=== PATIENT | female | born 1985 | race African-American/Black ===

== ENCOUNTER 2017-01-10 20:17 | Emergency (ER) | payer BC ==
[~2017-01-10] VITALS: Ht 170.2 cm; Wt 65.5 kg
[2017-01-10 20:21] VITALS: Ht 170.2 cm; Wt 65.5 kg
[2017-01-10] MEDS ORDERED: HYDR-906 PO (22:05)
[2017-01-10] MEDS: HYDROCODONE/APAP (5/325) TAB PO ONE ×2 (22:09→22:19)
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
[2017-01-10] MEDS ORDERED: SILVER SULFADIAZINE 1% 25 GM CR TOP ONE (22:30)
== END 2017-01-10 22:30 | disposition home or self-care (01) ==
LOC: FTE 20:17
DX: T55.1X1A Toxic effect of detergents, accidental (unintentional), initial encounter (principal); T24.511A Corrosion of first degree of right thigh, initial encounter; X58.XXXA Exposure to other specified factors, initial encounter; Y92.9 Unspecified place or not applicable
CPT/HCPCS: 16000; 99283; Z7610

== ENCOUNTER 2017-07-11 15:04 | Emergency (ER) | END 2017-07-11 19:06 | disposition home or self-care (01) ==

== ENCOUNTER 2017-12-13 12:02 | Emergency (ER) | END 2017-12-13 13:24 | disposition home or self-care (01) ==

== ENCOUNTER 2018-12-11 22:45 | Emergency (ER) | payer BC ==
[~2018-12-11] VITALS: Ht 170.2 cm; Wt 71.5 kg
[~2018-12-11 22:45] MED LIST: ACET500C5 PO; AMOX500C2 PO; BENZ-6 PO; CETI10CA PO; IBUP-1542 PO; ONDA4TAB8 PO; OSEL75CA23 PO; PRED20TA PO; TRIA15CR55 TOP
[2018-12-11 22:47] VITALS: Ht 170.2 cm; Wt 71.5 kg
[2018-12-12] MEDS ORDERED: ONDANSETRON 4 MG INJ IM STA (00:12)
[2018-12-12] MEDS ORDERED: ACETAMINOPHEN 500 MG TAB PO STA (00:12)
--- NOTE | 2018-12-12 00:15 | ERD ---
ER Documentation Chief Complaint Chief Complaint BROWN x3 hours w/ nausea/vomiting. no blurry vision HPI Patient is a 32 years old female with no known PMHx presenting to the clinic for headache, nausea, and emesis since 8 hours ago. Patient reports feeling sick while at work and admits to one NBNB emesis at 7:30PM. Patient reports taking Advil at work with improvement of headache. Patient rates her headache 4/10 and is located on her scalp. Patient denies all other ROS. ROS All systems reviewed and are negative except as per history of present illness. Medications Home Meds Active Scripts Acetaminophen* (Tylophen*) 500 Mg Capsule, 1 CAP PO Q6H PRN for PAIN AND OR ELEVATED TEMP, #20 CAP Prov:HUEY MURPHY PA-C 12/12/18 Ondansetron Hcl* (Zofran*) 4 Mg Tablet, 4 MG PO Q8H PRN for NAUSEA AND/OR VOMITING, #30 TAB Prov:HUEY MURPHY PA-C 12/12/18 Amoxicillin/Potassium Clav (Amox-Clav 500-125 mg Tablet) 500-125 mg Tab, 1 TAB PO Q8 for 7 Days, #21 TAB Prov:HUEY MURPHY PA-C 12/12/18 Prednisone* (Prednisone*) 20 Mg Tab, 40 MG PO DAILY for 5 Days, TAB Prov:SERGIO CHAPMAN MD 12/13/17 Cetirizine Hcl* (Zyrtec*) 10 Mg Capsule, 10 MG PO DAILY, #30 TAB.CHEW Prov:SERGIO CHAPMAN MD 12/13/17 Triamcinolone Acetonide (Triamcinolone Acetonide) 0.1% - 15 Gm Cream.gm., 1 APPLIC TOP BID, #1 TUB 30 g okay. Prov:SERGIO CHAPMAN MD 12/13/17 Benzonatate* (Tessalon Perle*) 100 Mg Capsule, 100 MG PO Q8H PRN for COUGH, #20 CAP Prov:TEMI SAMPSON 07/11/17 Ondansetron Hcl* (Zofran*) 4 Mg Tablet, 4 MG PO Q8H PRN for NAUSEA AND/OR VOMITING, #30 TAB Prov:TEMI SAMPSON 07/11/17 Acetaminophen* (Tylophen*) 500 Mg Capsule, 1 CAP PO Q6H PRN for PAIN AND OR ELEVATED TEMP, #20 CAP Prov:TEMI SAMPSON 07/11/17 Ibuprofen* (Motrin*) 600 Mg Tab, 600 MG PO Q8 PRN for fever/pain, #30 TAB Prov:TEMI SAMPSON 07/11/17 Amoxicillin* (Amoxicillin*) 500 Mg Cap, 500 MG PO TID for 7 Days, CAP Prov:TEMI SAMPSON 07/11/17 Oseltamivir Phosphate* (Tamiflu*) 75 Mg Capsule, 75 MG PO BID for 5 Days, CAP Prov:TEMI SAMPSON 07/11/17 Allergies Allergies: Coded Allergies: No Known Allergy (Unverified , 12/13/17) PMhx/Soc Medical and Surgical Hx: pt denies Medical Hx, pt denies Surgical Hx History of Surgery: No Anesthesia Reaction: No Hx Neurological Disorder: No Hx Respiratory Disorders: No Hx Cardiac Disorders: No Hx Psychiatric Problems: No Hx Miscellaneous Medical Probl: No Hx Alcohol Use: No Hx Substance Use: No Hx Tobacco Use: No FmHx Family History: No diabetes, No coronary disease, No other Physical Exam Vitals Vital Signs Date Temp Pulse Resp B/P (MAP) Pulse Ox O2 O2 Flow FiO2 Time Delivery Rate 12/11/18 97.8 71 16 119/76 100 22:47 (90) Physical Exam Const: No acute distress Head: Atraumatic Eyes: Normal Conjunctiva ENT: Normal Nose and Mouth. Left otitis media erythematous without discharge and perforation. Neck: Full range of motion. No meningismus. Resp: Clear to auscultation bilaterally Cardio: Regular rate and rhythm, no murmurs Abd: Soft, non tender, non distended. Normal bowel sounds Skin: No petechiae or rashes Back: No midline or flank tenderness Ext: No cyanosis, or edema Neur: Awake and alert Psych: Normal Mood and Affect Results 24 hrs Laboratory Tests Test 12/12/18 00:37 12/12/18 00:42 Urine Color YELLOW Urine Clarity SLIGHTLY CLOUDY Urine pH 6.0 Urine Specific [place] 1.013 Urine Ketones NEGATIVE mg/dL Urine Nitrite NEGATIVE mg/dL Urine Bilirubin NEGATIVE mg/dL Urine Urobilinogen NEGATIVE mg/dL Urine Leukocyte Esterase TRACE Dom/ul Urine Microscopic RBC 2 /HPF Urine Microscopic WBC 4 /HPF Urine Squamous Epithelial Cells FEW /HPF Urine Bacteria FEW /HPF Urine Mucus FEW /HPF Urine Hemoglobin 1+ mg/dL Urine Glucose NEGATIVE mg/dL Urine Total Protein NEGATIVE mg/dl POC Beta HCG, Qualitative NEGATIVE Current Medications Medications Dose Sig/Colleen Start Time Status Last (Trade) Ordered Route PRN Stop Time Admin Dose Reason Admin Ondansetron 4 mg ONCE STAT 12/12/18 DC 12/12/18 HCl (Zofran IM 00:12 00:54 Inj) 12/12/18 00:13 500 mg ONCE STAT 12/12/18 DC 12/12/18 Acetaminophen PO 00:12 00:54 (Tylenol 12/12/18 00:13 Tab) Procedures/MDM Patient was seen and evaluated for headache, nausea and emesis. Patient has an unremarkable physical exam aside from left otitis media. Urinalysis is grossly unremarkable with trace leukocyte esterase. Patient was given Zofran 4mg IM and Tylenol PO with improvement of symptoms. Low suspicion for SAH, sepsis. No further workup required for today's visit. Patient is stable and ready for discharge. F/U with PCP. Patient will be given Augmentin 500mg PO TID x 7 Days, Tylenol, and Zofran. Departure Diagnosis: Primary Impression: Left otitis media Otitis media type: suppurative Chronicity: acute Recurrence: non- recurrent Spontaneous tympanic membrane rupture: without spontaneous rupture Qualified Codes: H66.002 - Acute suppurative otitis media without spontaneous rupture of ear drum, left ear Condition: Stable Patient Instructions: Otitis Media, Abx Tx (Adult) Referrals: [facility] Additional Instructions: Patient advised to return to the ED immediately for new or worsening symptoms. Patient advised to follow up with primary care provider in the next 24-48 hours. Patient verbalized understanding and agrees with treatment plan and course of action. If patient has no primary care they may follow up with [facility] [address] [place] [id number] or [facility] [address] [place] [address] or [facility] [address] [place] [address] HUEY MURPHY PA-C Dec 12, 2018 00:15
[2018-12-12] MEDS ORDERED: AMOX1TAB9 PO (01:29)
[2018-12-12] MEDS ORDERED: ONDA4TAB8 PO (01:29)
[2018-12-12] MEDS ORDERED: ACET500C5 PO (01:29)
[2018-12-12 02:01] VITALS: BP 104/75; PULSE 71; RESP 17
== END 2018-12-12 02:01 | disposition home or self-care (01) ==
LOC: FTE 22:45
DX: H66.002 Acute suppurative otitis media without spontaneous rupture of ear drum, left ear (principal)
CPT/HCPCS: 81001; 81025; 96372; 99284; J2405; Z7610